=== PATIENT | male | born 1980 | race Caucasian/White ===

== ENCOUNTER 2016-08-06 11:23 | Outpatient (CLI) | payer OTHER ==
[~2016-08-06 11:23] MED LIST: CELEBREX200 MG PO; CYCLOBENZAPRINE10 MG PO; ENBREL50 MG/ML SC; ETODOLAC ER400 MG PO; FENTANYL12 MCG/HR TOP; METHOCARBAMOL500 MG PO; METHYLPHENIDATE30 MG PO; PRILOSEC20 MG PO; TRAMADOL HCL50 MG PO; WELLBUTRIN SR100 MG PO; ZYRTEC ALLERGY10 MG PO
--- NOTE | 2016-08-06 11:58 | DIAGNOSTIC IMAGING REPORT ---
PROCEDURE: XR THORACIC SPINE 3 VIEWS INDICATION: BACK PAIN TECHNIQUE: Three views. COMPARISON: None. FINDINGS: Osseous structures and disc spaces are normal. No evidence of an acute process or fracture. IMPRESSION: 1. Negative thoracic spine.
== END 2016-08-06 23:00 ==
LOC: XR SRH 11:23
DX: M54.6 Pain in thoracic spine (principal)